=== PATIENT | male | born 1970 | race Caucasian/White ===

== ENCOUNTER 2017-08-07 07:20 | Emergency (ER) | payer SELFPAY ==
[~2017-08-07] VITALS: Ht 182.9 cm; Wt 126.8 kg
[2017-08-07] MEDS ORDERED: SING10TA32 PO (07:33)
[2017-08-07] MEDS ORDERED: LISI-538 PO (07:33)
[2017-08-07] MEDS ORDERED: DOXYCYCLINE HYCLATE 100 MG TAB PO ONE (08:15)
[2017-08-07 08:30] VITALS: BP 138/79
[2017-08-07] MEDS ORDERED: CLAR10CA3 PO (08:34)
[2017-08-07] MEDS ORDERED: LISI20TA3 PO (08:34)
== END 2017-08-07 08:49 | disposition home or self-care (01) ==
LOC: M ED 07:20
DX: S30.862A Insect bite (nonvenomous) of penis, initial encounter (principal); W57.XXXA Bitten or stung by nonvenomous insect and other nonvenomous arthropods, initial encounter; Y92.9 Unspecified place or not applicable; Y93.9 Activity, unspecified; Y99.9 Unspecified external cause status; Z79.899 Other long term (current) drug therapy

== ENCOUNTER → 2018-09-28 | Outpatient (REF) | payer SELFPAY, OTHER ==
[2018-09-28 14:16] LABS: HEMATOCRIT 44.1 % (42.0-52.0); MEAN CORPUSCULAR HEMOGLOBIN 25.8 pg (27.0-33.0); MEAN CORPUSCULAR HGB CONC 31.7 g/dl (32.0-36.5); MEAN CORPUSCULAR VOLUME 81.4 fl (80.0-96.0); PLATELET COUNT, AUTOMATED 284 10^3/uL (150-450); RED BLOOD COUNT 5.42 10^6/uL (4.30-6.10); RED CELL DISTRIBUTION WIDTH 14.6 % (11.5-14.5); WHITE BLOOD COUNT 6.8 10^3/uL (4.0-10.0)
[2018-09-28 14:39] LABS: CREATININE, URINE 79.7 MG/DL; MAU/CREAT RATIO 13.8 MCG/MG (0.0-30.0)
[2018-09-28 14:44] LABS: ALBUMIN 3.8 GM/DL (3.2-5.2); ALBUMIN/GLOBULIN RATIO 1.09 (1.00-1.93); ALKALINE PHOSPHATASE 70 U/L (45-117); ALT/SGPT 63 U/L (12-78); ANION GAP 7 MEQ/L (8-16); AST/SGOT 30 U/L (7-37); BILIRUBIN,TOTAL 0.4 MG/DL (0.2-1.0); BLOOD UREA NITROGEN 20 MG/DL (7-18); CALCIUM LEVEL 9.2 MG/DL (8.5-10.1); CARBON DIOXIDE LEVEL 32 MEQ/L (21-32); CHLORIDE LEVEL 103 MEQ/L (98-107); CREATININE FOR GFR 0.94 MG/DL (0.70-1.30); FREE T4 1.04 NG/DL (0.76-1.46); GLOMERULAR FILTRATION RATE > 60.0 (>60); GLUCOSE, FASTING 96 MG/DL (70-100); SODIUM LEVEL 142 MEQ/L (136-145); TOTAL PROTEIN 7.3 GM/DL (6.4-8.2)
== END ==
LOC: M SFHCPLAZ 11:04
DX: I10 Essential (primary) hypertension (principal)
CPT/HCPCS: 84443

== ENCOUNTER → 2019-01-29 | Outpatient (CLI) | payer OTHER, SELFPAY ==
[~2019-01-29] MED LIST: CLAR10CA3 PO; LISI-538 PO; LISI20TA3 PO; SING10TA32 PO
[2019-01-29 10:18] LABS: CHOLESTEROL LEVEL 180 MG/DL (<200); CHOLESTEROL RISK RATIO 8.571 (<5); HDL CHOLESTEROL 21 MG/DL (>40); NON-HDL-C 159 MG/DL; TRIGLYCERIDES LEVEL 586 MG/DL (<150)
--- NOTE | 2019-01-30 10:48 | REP ---
Clinical: Left lower extremity pain and numbness. Technique: AP, lateral, bilateral oblique, and coned-down views of the lumbosacral spine. Findings: Alignment is maintained and there is no evidence for acute fracture / compression injury or subluxation. Limbus vertebra along the superior anterior margin of the L3 noted. Moderate multilevel degenerative changes include endplate sclerosis with disc space narrowing and marginal osteophytes as well as moderate hypertrophic facet changes. Impression: Moderate multilevel degenerative spondylosis. Electronically Signed by Garcia Kuhn MD 01/30/2019 10:40 A
== END ==
LOC: M LAB 09:15
PROVIDERS: ATTEND Physician Assistant
DX: Z13.220 Encounter for screening for lipoid disorders (principal)

== ENCOUNTER → 2019-04-16 | Outpatient (CLI) | payer MEDICAID ==
--- NOTE | 2019-04-16 16:30 | REP ---
Clinical: Possible pulmonary nodule by x-ray. Technique: Axial noncontrast images from the thoracic inlet to the upper abdomen with coronal and sagittal re-formations. Comparison: Chest x-ray dated 03/21/2019. Findings: Innumerable calcified mediastinal and primarily right hilar lymph nodes are appreciated as well as scattered right-sided calcified granulomata which likely correspond to the 8 mm nodule identified along the medial right upper lung zone. The lung nunez are otherwise well aerated and without acute consolidation, significant noncalcified nodule or mass lesion. No effusion. No pneumothorax. Tracheobronchial tree is patent. No obvious acute adenopathy. Mediastinum demonstrates normal thoracic aorta, pulmonary vasculature, and heart/pericardium. Upper abdomen demonstrates diffuse hepatic steatosis. Musculoskeletal structures are intact without focal osseous abnormality. Impression: 1. Evidence of prior granulomas disease including calcified lymph nodes and scattered right-sided granulomata. Nodule by a recent x-ray corresponds to calcified granuloma. 2. No acute mediastinal or pleuroparenchymal process appreciated. 3. Significant hepatic steatosis. Electronically Signed by Garcia Kuhn MD 04/16/2019 04:22 P
== END ==
LOC: M RAD 15:35
PROVIDERS: ATTEND Nurse Practitioner Adult Health
DX: R93.89 Abnormal findings on diagnostic imaging of other specified body structures (principal); R91.1 Solitary pulmonary nodule; K76.0 Fatty (change of) liver, not elsewhere classified